=== PATIENT | female | born 1975 | race Caucasian/White ===

== ENCOUNTER 2020-01-31 15:16 | Emergency (ER) | payer MEDICAID, OTHER ==
[~2020-01-31] VITALS: Ht 165 cm; Wt 61.2 kg
[2020-01-31 16:20] LABS: BASOPHILS # (AUTO) 0.1 10^3/uL (0.0-0.1); BASOPHILS % (AUTO) 1 % (0-10); EOSINOPHILS # (AUTO) 0.3 10^3/uL (0.0-0.3); EOSINOPHILS % (AUTO) 2 % (0-10); HEMATOCRIT 42 % (35-52); LYMPHOCYTES # (AUTO) 3.6 10^3/uL (1.0-4.0); LYMPHOCYTES % (AUTO) 33 % (12-44); MEAN CORPUSCULAR HEMOGLOBIN 30 pg (25-34); MEAN CORPUSCULAR HGB CONC 33 g/dL (32-36); MEAN CORPUSCULAR VOLUME 92 fL (80-99); MEAN PLATELET VOLUME 10.3 fL (9.0-12.2); MONOCYTES # (AUTO) 0.6 10^3/uL (0.0-1.0); MONOCYTES % (AUTO) 6 % (0-12); NEUTROPHILS # (AUTO) 6.3 10^3/uL (1.8-7.8); NEUTROPHILS % (AUTO) 58 % (42-75); PLATELET COUNT 238 10^3/uL (130-400); WHITE BLOOD COUNT 10.8 10^3/uL (4.3-11.0)
[2020-01-31 16:23] LABS: BILIRUBIN,URINE NEGATIVE (NEGATIVE); CLARITY,URINE CLEAR; COLOR,URINE YELLOW; GLUCOSE, URINE (UA) NEGATIVE (NEGATIVE); KETONES,URINE NEGATIVE (NEGATIVE); LEUKOCYTE ESTERASE ,URINE NEGATIVE (NEGATIVE); NITRITE,URINE NEGATIVE (NEGATIVE); PH,URINE 6.5 (5-9); PROTEIN,URINE NEGATIVE (NEGATIVE)
[2020-01-31 16:31] LABS: BACTERIA,URINE NEGATIVE /HPF
[2020-01-31 16:39] LABS: CHLORIDE 103 MMOL/L (98-107); SODIUM 138 MMOL/L (135-145)
[2020-01-31 16:41] LABS: CALCIUM 8.9 MG/DL (8.5-10.1)
[2020-01-31 16:42] LABS: GLUCOSE 89 MG/DL (70-105); TOTAL PROTEIN 7.6 GM/DL (6.4-8.2)
[2020-01-31 16:43] LABS: CARBON DIOXIDE 24 MMOL/L (21-32)
[2020-01-31 16:44] LABS: BILIRUBIN,TOTAL 0.3 MG/DL (0.1-1.0)
[2020-01-31 16:45] LABS: ALKALINE PHOSPHATASE 65 U/L (40-136)
[2020-01-31 16:46] LABS: CREATININE SERUM 0.88 MG/DL (0.60-1.30); GFR ESTIMATED > 60
[2020-01-31 16:47] LABS: BUN/CREATININE RATIO 13
[2020-01-31 16:49] LABS: ALANINE AMINOTRANSFERASE 15 U/L (0-55); LIPASE 16 U/L (8-78)
--- NOTE | 2020-01-31 17:20 | Diagnostic Imaging Report ---
PROCEDURE: US gallbladder. TECHNIQUE: Multiple real-time grayscale images were obtained over the right upper quadrant in various projections. INDICATION: Right upper quadrant pain. Chest pain. FINDINGS: The liver is normal. The gallbladder is partially contracted with no gallstone seen. There is no pericholecystic fluid present. Common bile duct is prominent at 8 mm with no intrahepatic biliary ductal dilatation seen. Pancreas, aorta, IVC and right kidney are normal. There is no ascites. IMPRESSION: Contracted gallbladder. The common bile duct is prominent but no intraductal stone is evident. If further evaluation is felt necessary regarding possible choledocholithiasis, an MRCP or gallbladder scan and function study may be helpful. Dictated by: Dictated on workstation # [id number]
[2020-01-31] MEDS ORDERED: HOLD METFORMIN - RECEIVED CONTRAST 20 ML VIAL IV SCH (17:30)
[2020-01-31] MEDS ORDERED: NS 100 ML (IVPB) BAG IV ONE (17:30)
[2020-01-31] MEDS ORDERED: IOHEXOL 350 MG/ML 100 ML (OMNIPAQUE 350) VIAL IV ONE (17:30)
--- NOTE | 2020-01-31 17:42 | ED Chest Pain ---
General Chief Complaint: Respiratory Problems Stated Complaint: SOB Nursing Triage Note: PT REPORTS TO ED FOR SOB X'S 2 DAYS AND RUQ PAIN THAT STARTED TODAY. Nursing Sepsis Screen: No Definite Risk Source: patient Exam Limitations: no limitations History of Present Illness Date Seen by Provider: Jan 31, 2020 Time Seen by Provider: 16:00 Initial Comments This 44-year-old woman presents to the emergency room with complaints of right lower chest pain for the past 2 days. She has been short of breath and has increased pain with inspiration. Over the past 10 days she has experienced head congestion and dry cough. She denies any fevers. Symptoms started last weekend when she was camping. She does not have any known COVID-19 exposures. She does have rheumatoid arthritis and is on Humira. She also smokes. Allergies and Home Medications Allergies Coded Allergies: No Allergy Information Available (Unverified , 01/31/20) Home Medications Azithromycin 250 Mg Tablet, 250 MG PO DAILY Prescribed by: TYRA CONNOR on 01/31/20 6046 Patient Home Medication List Home Medication List Reviewed: Yes Review of Systems Review of Systems Constitutional: no symptoms reported EENTM: No Symptoms Reported Respiratory: See HPI Cardiovascular: No Symptoms Reported Gastrointestinal: See HPI Genitourinary: No Symptoms Reported Musculoskeletal: see HPI Skin: no symptoms reported Psychiatric/Neurological: No Symptoms Reported Endocrine: No Symptoms Reported Hematologic/Lymphatic: No Symptoms Reported Past Mvscjpj-Foldmf-Fvjyyo Hx Past Med/Social Hx: Reviewed Nursing Past Med/Soc Hx Patient Social History Alcohol Use: Denies Use Recreational Drug Use: No Smoking Status: Current Everyday Smoker Type Used: Cigarettes Recent Foreign Travel: No Contact w/Someone Who Travel: No Recent Infectious Disease Expo: No Recent Hopitalizations: No Seasonal Allergies Seasonal Allergies: No Past Medical History Surgeries: Yes (HERNIA REPAIR X'S 3 AND COSMETIC ) Eye Surgery, Tubal Ligation Respiratory: No Cardiac: No Neurological: No : No Reproductive Disorders: No Genitourinary: No Gastrointestinal: No Musculoskeletal: Yes Rheumatoid Arthritis Endocrine: No HEENT: No Cancer: No Psychosocial: No Physical Exam Vital Signs Vital Signs - First Documented 01/31/20 15:30 Temp 36.9 Pulse 89 Resp 20 B/P (MAP) 125/86 (99) Pulse Ox 96 O2 Delivery Room Air Capillary Refill : Less Than 3 Seconds Height, Weight, BMI Height: '" Weight: lbs. oz. kg; 22.00 BMI Method: General Appearance: WD/WN, Mild Distress HEENT: PERRL/EOMI, Normal ENT Inspection, Other (MMM) Neck: Normal Inspection Respiratory: Chest Non Tender, Lungs Clear, Normal Breath Sounds, No Accessory Muscle Use, Other (Splinting respirations) Cardiovascular: Regular Rate, Rhythm, No Edema, No Murmur Gastrointestinal: Normal Bowel Sounds, Soft, Tenderness (beneath the right costal margin) Extremity: Normal Inspection, No Pedal Edema Neurologic/Psychiatric: Alert, Oriented x3, No Motor/Sensory Deficits, Normal Mood/Affect, flame channeler II-XII Norm as Tested Skin: Normal Color, Warm/Dry Progress/Results/Core Measures Results/Orders Lab Results Laboratory Tests Test 01/31/20 15:45 01/31/20 16:07 01/31/20 16:15 Range/Units Coronavirus 2019 ([facility]) Negative Negative White Blood Count 10.8 4.3-11.0 10^3/uL Red Blood Count 4.62 3.80-5.11 10^6/uL Hemoglobin 14.0 11.5-16.0 g/dL Hematocrit 42 35-52 % Mean Corpuscular Volume 92 80-99 fL Mean Corpuscular Hemoglobin 30 25-34 pg Mean Corpuscular Hemoglobin Concent 33 32-36 g/dL Red Cell Distribution Width 13.4 10.0-14.5 % Platelet Count 238 130-400 10^3/uL Mean Platelet Volume 10.3 9.0-12.2 fL Immature Granulocyte % (Auto) 0 % Neutrophils (%) (Auto) 58 42-75 % Lymphocytes (%) (Auto) 33 12-44 % Monocytes (%) (Auto) 6 0-12 % Eosinophils (%) (Auto) 2 0-10 % Basophils (%) (Auto) 1 0-10 % Neutrophils # (Auto) 6.3 1.8-7.8 10^3/uL Lymphocytes # (Auto) 3.6 1.0-4.0 10^3/uL Monocytes # (Auto) 0.6 0.0-1.0 10^3/uL Eosinophils # (Auto) 0.3 0.0-0.3 10^3/uL Basophils # (Auto) 0.1 0.0-0.1 10^3/uL Immature Granulocyte # (Auto) 0.0 0.0-0.1 10^3/uL D-Dimer 1.22 H 0.00-0.49 UG/ML Sodium Level 138 135-145 MMOL/L Potassium Level 4.0 3.6-5.0 MMOL/L Chloride Level 103 98-107 MMOL/L Carbon Dioxide Level 24 21-32 MMOL/L Anion Gap 11 5-14 MMOL/L Blood Urea Nitrogen 11 7-18 MG/DL Creatinine 0.88 0.60-1.30 MG/DL Estimat Glomerular Filtration Rate > 60 BUN/Creatinine Ratio 13 Glucose Level 89 70-105 MG/DL Calcium Level 8.9 8.5-10.1 MG/DL Corrected Calcium 8.9 8.5-10.1 MG/DL Total Bilirubin 0.3 0.1-1.0 MG/DL Aspartate Amino Transf (AST/SGOT) 16 5-34 U/L Alanine Aminotransferase (ALT/SGPT) 15 0-55 U/L Alkaline Phosphatase 65 40-136 U/L Lactate Dehydrogenase 177 125-220 U/L C-Reactive Protein High Sensitivity 0.29 0.00-0.50 MG/DL Total Protein 7.6 6.4-8.2 GM/DL Albumin 4.0 3.2-4.5 GM/DL Lipase 16 8-78 U/L Procalcitonin 0.02 <0.10 NG/ML Urine Color YELLOW Urine Clarity CLEAR Urine pH 6.5 5-9 Urine Specific [place] 1.025 H 1.016-1.022 Urine Protein NEGATIVE NEGATIVE Urine Glucose (UA) NEGATIVE NEGATIVE Urine Ketones NEGATIVE NEGATIVE Urine Nitrite NEGATIVE NEGATIVE Urine Bilirubin NEGATIVE NEGATIVE Urine Urobilinogen 0.2 < = 1.0 MG/DL Urine Leukocyte Esterase NEGATIVE NEGATIVE Urine RBC (Auto) 2+ H NEGATIVE Urine RBC 2-5 H /HPF Urine WBC NONE /HPF Urine Squamous Epithelial Cells 5-10 /HPF Urine Crystals NONE /LPF Urine Bacteria NEGATIVE /HPF Urine Casts NONE /LPF Urine Mucus NEGATIVE /LPF Urine Culture Indicated NO Micro Results Microbiology 01/31/20 Influenza Types A,B Antigen (NIA) - Final, Complete My Orders Orders - TYRA URRUTIA MD Cbc With Automated Diff (01/31/20 16:08) Comprehensive Metabolic Panel (01/31/20 16:08) Hs C Reactive Protein (01/31/20 16:08) Lipase (01/31/20 16:08) Ua Culture If Indicated (01/31/20 16:08) Fibrin Degradation Products (01/31/20 16:08) Procalcitonin (Pct) (01/31/20 16:08) LDH (01/31/20 16:08) Influenza A And B Antigens (01/31/20 16:26) Covid 19 Inhouse Test (01/31/20 16:26) Ekg Tracing (01/31/20 16:28) Monitor-Rhythm Ecg Trace Only (01/31/20 16:28) Us Gallbladder [id number] (01/31/20 16:48) Ct Angio Chest W (01/31/20 17:10) Iohexol Injection (Omnipaque 350 Mg/Ml 1 (01/31/20 17:30) Received Contrast (Hold Metformin- Contr (01/31/20 17:30) Ns (Ivpb) (Sodium Chloride 0.9% Ivpb Bag (01/31/20 17:30) Ketorolac Injection (Toradol Injection) (01/31/20 18:30) Azithromycin Tablet (Zithromax Tablet) (01/31/20 18:30) Coronavirus Sars-Cov-2 So 2019 (01/31/20 18:19) Medications Given in ED Current Medications Medications Dose Ordered Sig/Raji Route Start Time Stop Time Status Last Admin Dose Admin Iohexol 75 ml ONCE ONCE IV 01/31/20 17:30 01/31/20 17:31 DC 01/31/20 18:01 60 ML Sodium Chloride 100 ml ONCE ONCE IV 01/31/20 17:30 01/31/20 17:31 DC 01/31/20 18:02 80 ML Vital Signs/I&O 01/31/20 15:30 Temp 36.9 Pulse 89 Resp 20 B/P (MAP) 125/86 (99) Pulse Ox 96 O2 Delivery Room Air Blood Pressure Mean: 99 Progress Progress Note #1: Time: 17:55 Progress Note Due to tenderness in the right upper quadrant, gallbladder ultrasound was obtained. Rapid Covid swab was also obtained due to the suspicious symptoms. Ultrasound and Covid swab were both negative. Labs were obtained and a D-dimer was elevated greater than 1.0. CT angiogram was ordered. Patient declined pain medication. Progress Note #2: Time: 18:[address] was negative for pulmonary emboli but she did have bilateral groundglass opacities. For this reason she was treated with a azithromycin and a backup COVID-19 swab was obtained. Toradol was given for pain. The first dose of a azithromycin was administered in the ER. Diagnostic Imaging Diagonstic Imaging: Ultrasound Plain Films/CT/US/NM/MRI: abdomen Comments NAME: AGAPITO TIAN [facility] REC#: [id number] PT STATUS: REG ER : 1975 PHYSICIAN: TYRA URRUTIA MD ADMIT DATE: 01/31/20/ER Signed Date of Exam:01/31/20 US GALLBLADDER [id number] PROCEDURE: US gallbladder. TECHNIQUE: Multiple real-time grayscale images were obtained over the right upper quadrant in various projections. INDICATION: Right upper quadrant pain. Chest pain. FINDINGS: The liver is normal. The gallbladder is partially contracted with no gallstone seen. There is no pericholecystic fluid present. Common bile duct is prominent at 8 mm with no intrahepatic biliary ductal dilatation seen. Pancreas, aorta, IVC and right kidney are normal. There is no ascites. IMPRESSION: Contracted gallbladder. The common bile duct is prominent but no intraductal stone is evident. If further evaluation is felt necessary regarding possible choledocholithiasis, an MRCP or gallbladder scan and function study may be helpful. Dictated by: Dictated on workstation # [id number] Dict: 01/31/201714 Trans: 01/31/201737 [facility] [id number] Interpreted by: SHADY PATEL MD Electronically signed by: SHADY PATEL MD 01/31/20 1738 Reviewed: Reviewed by Me Diagonstic Imaging: CT Plain Films/CT/US/NM/MRI: chest Comments CT angiogram chest reviewed by me and report reviewed. See report below: NAME: AGAPITO TIAN [facility] REC#: [id number] PT STATUS: REG ER : 1975 PHYSICIAN: TYRA URRUTIA MD ADMIT DATE: 01/31/20/ER Signed Date of Exam:01/31/20 CT ANGIO CHEST W PROCEDURE: CT angiography of the chest with contrast. TECHNIQUE: Multiple contiguous axial images were obtained through the chest after uneventful bolus administration of intravenous contrast. 3D reconstructed CTA MIP acquisitions were also performed. Auto Exposure Controls were utilized during the CT exam to meet ALARA standards for radiation dose reduction. INDICATION: Short of breath. Right upper quadrant pain. FINDINGS: There is slight increased density in the dependent portions of the lungs which is most likely dependent atelectasis. Mild bilateral groundglass infiltrates cannot totally be excluded. No consolidations are seen. There is no effusion or pneumothorax. There is no mediastinal mass or hemorrhage. There is no aortic dissection. There is no pulmonary embolus. IMPRESSION: Probable bilateral dependent atelectasis in the posterior lungs but patchy bilateral groundglass infiltrates cannot totally be excluded. There is no pulmonary embolus. Dictated by: Dictated on workstation # [id number] Dict: 01/31/201805 Trans: 01/31/201835 [facility] [id number] Interpreted by: SHADY PATEL MD Electronically signed by: SHADY PATEL MD 01/31/201835 Departure Impression Primary Impression: Pleuritic chest pain Additional Impressions: Right upper quadrant pain Abnormal CT scan, lung Disposition: 01 HOME, SELF-CARE Condition: Improved Departure-Patient Inst. Decision time for Depature: 18:28 Referrals: NO,LOCAL PHYSICIAN (PCP/Family) Primary Care Physician Patient Instructions: COVID19, Pneumonia, Adult (DC) Add. Discharge Instructions: There were some subtle groundglass appearing abnormalities in your lungs on your CT scan. This appearance can be present with atypical pneumonia or COVID-19. Remain in quarantine until the results of your COVID-19 test is known. Complete the antibiotics as prescribed for possible pneumonia. Start this tomorrow. For pain you may take ibuprofen up to 600 mg every 6 hours as needed and Tylenol (acetaminophen) up to 1000 mg every 6 hours as needed. Drink plenty of clear liquids to stay well-hydrated. Follow-up with your primary care provider or return to the emergency room if symptoms are not improving or if you have worsening symptoms. All discharge instructions reviewed with patient and/or family. Voiced understanding. Scripts Azithromycin (Azithromycin) 250 Mg Tablet 250 MG PO DAILY, #4 TAB 0 Refills Prov: TYRA URRUTIA MD 01/31/20 TYRA URRUTIA MD Jan 31, 2020 17:42
--- NOTE | 2020-01-31 18:10 | Diagnostic Imaging Report ---
PROCEDURE: CT angiography of the chest with contrast. TECHNIQUE: Multiple contiguous axial images were obtained through the chest after uneventful bolus administration of intravenous contrast. 3D reconstructed CTA MIP acquisitions were also performed. Auto Exposure Controls were utilized during the CT exam to meet ALARA standards for radiation dose reduction. INDICATION: Short of breath. Right upper quadrant pain. FINDINGS: There is slight increased density in the dependent portions of the lungs which is most likely dependent atelectasis. Mild bilateral groundglass infiltrates cannot totally be excluded. No consolidations are seen. There is no effusion or pneumothorax. There is no mediastinal mass or hemorrhage. There is no aortic dissection. There is no pulmonary embolus. IMPRESSION: Probable bilateral dependent atelectasis in the posterior lungs but patchy bilateral groundglass infiltrates cannot totally be excluded. There is no pulmonary embolus. Dictated by: Dictated on workstation # [id number]
[2020-01-31] MEDS ORDERED: KETOROLAC 30 MG/ML VIAL IVP ONE (18:30)
[2020-01-31] MEDS ORDERED: AZITHROMYCIN 250 MG TAB (ZITHROMAX) PO ONE (18:30)
[2020-01-31] MEDS ORDERED: AZIT250T12 PO (18:31)
[2020-01-31 19:02] VITALS: BP 104/79
== END 2020-01-31 19:04 | disposition home or self-care (01) ==
LOC: ER 15:17
DX: R07.81 Pleurodynia (principal); R10.11 Right upper quadrant pain; R91.8 Other nonspecific abnormal finding of lung field; F17.210 Nicotine dependence, cigarettes, uncomplicated; Z20.828 Contact with and (suspected) exposure to other viral communicable diseases
CPT/HCPCS: 71275; 76705; 80053; 81000; 83615; 83690; 84145; 85025; 85379; 86141; 87804; 93005; 93041; 99284; U0002; 36415; 87635